=== PATIENT | male | born 1955 | race Caucasian/White ===

== ENCOUNTER 2019-03-20 16:19 | Emergency (ER) | payer OTHER ==
[~2019-03-20] VITALS: Ht 175.3 cm; Wt 81.8 kg
[~2019-03-20 16:19] MED LIST: ADV100 IH; ALBU8.5H8 IH; CHLO5CAP3 PO; FLUO-191 PO; GABA-531 PO; TRAZ-220 PO; VENL-193 PO
[2019-03-20] MEDS ORDERED: CLON.2 PO (16:38)
[2019-03-20] MEDS ORDERED: ALBU8HFA IH (16:38)
[2019-03-20] MEDS ORDERED: LORA2TAB2 PO (16:38)
[2019-03-20 18:42] VITALS: BP 120/65
== END 2019-03-20 19:16 | disposition home or self-care (01) ==
LOC: EMS 16:19
DX: F10.20 Alcohol dependence, uncomplicated (principal); E03.9 Hypothyroidism, unspecified; J45.909 Unspecified asthma, uncomplicated; F11.90 Opioid use, unspecified, uncomplicated; M19.90 Unspecified osteoarthritis, unspecified site; Z51.89 Encounter for other specified aftercare; Z79.899 Other long term (current) drug therapy; Z98.890 Other specified postprocedural states

== ENCOUNTER 2025-03-09 07:55 | Emergency (ER) | payer MEDICARE, OTHER ==
[~2025-03-09] VITALS: Ht 177.8 cm; Wt 86.4 kg
[~2025-03-09 07:55] MED LIST changes: -ADV100 IH; +ALBU18HF12 IH; -CHLO5CAP3 PO; +CLON0.2T2 PO; -FLUO-191 PO; -GABA-531 PO; +LORA2TAB18 PO; -TRAZ-220 PO; +TRAZ-257 PO
[2025-03-09 08:00] VITALS: BP 170/96; PULSE 88; RESP 20; TEMP 98.2; O2SAT 99
[2025-03-09] MEDS ORDERED: LOSA-381 PO (08:00)
== END 2025-03-09 08:28 | disposition home or self-care (01) ==
LOC: EMS 07:57
DX: S01.81XD Laceration without foreign body of other part of head, subsequent encounter (principal); E03.9 Hypothyroidism, unspecified; I10 Essential (primary) hypertension; J45.909 Unspecified asthma, uncomplicated; M10.9 Gout, unspecified; F11.90 Opioid use, unspecified, uncomplicated; F10.90 Alcohol use, unspecified, uncomplicated; Z98.890 Other specified postprocedural states; Z79.899 Other long term (current) drug therapy; X58.XXXD Exposure to other specified factors, subsequent encounter; Y90.9 Presence of alcohol in blood, level not specified
CPT/HCPCS: 99281; Z7502